=== PATIENT | female | born 1990 | race Caucasian/White ===

== ENCOUNTER 2019-05-30 15:00 | Emergency (ER) | payer MEDICARE, MEDICAID, SELFPAY ==
[2019-05-30 15:11] VITALS: BP 113/61; PULSE 64; RESP 16; TEMP 36.6; O2SAT 100
--- NOTE | 2019-05-30 15:38 | ED.GENADULT ---
HPI - General Adult General Chief complaint: Ear Stated complaint: right ear spot Time Seen by Provider: 05/30/19 15:39 Source: patient Mode of arrival: ambulatory Limitations: no limitations History of Present Illness HPI narrative: Chelle Maddox is a 28 yo female who comes to the urgent care for a small indurated area on the right lower earlobe; states is slightly tender, no drainage, has a piercing that is removed from the area Boyfriend states worried id cauliflower ear even though no trauma Related Data Allergies Allergy/AdvReac Type Severity Reaction Status Date / Time [place] Hair Removal AdvReac Mild rash Uncoded 05/30/19 15:19 Review of Systems Review of Systems: Narrative: CONSTITUTIONAL: Denies fever, chills, sweats. EYES: Denies visual changes, redness, discharge. ENT: Denies rhinorrhea, congestion, sore throat, otalgia. CARDIOVASCULAR: Denies chest pain, palpitations, edema. RESPIRATORY: Denies dyspnea, wheezing, cough GASTROINTESTINAL: Denies abdominal pain, nausea, vomiting, diarrhea. GENITOURINARY: Denies dysuria, hematuria, abnormal discharge SKIN: Denies rash or itching. Small induration of the right lower earlobe MUSCULOSKELETAL: Denies acute back pain, joint pain, or myalgia. NEUROLOGIC: Denies numbness, or focal weakness. PSYCHIATRIC: Denies anxiety or depression. [facility], [facility] Social History Social History (Updated 05/30/19 @ 15:49 by Lovely Arroyo CNP) Smoking status: Never smoker Comments At time of signature, I agree with nursing past medical, surgical, social and family history. There is no relevant family history pertinent to the presenting complaint. Exam Narrative: Exam Narrative: GENERAL: This is a well-nourished, well-developed patient, in no apparent distress. HEAD: normocephalic, atraumatic. EYES: Sclera clear/white. Vision is grossly intact. EARS: External ears normal, auditory canals clear and without drainage, TMs normal without perforation. Hearing grossly intact. Small indurated area on right lobe, nonfluctuant, mildly tender, no erythema NOSE: External nose normal with no obvious nasal discharge, nares without redness, no rhinorrhea. THROAT: Mucous membranes moist, NECK: Neck supple, non-tender CARDIOVASCULAR: Regular rate and rhythm without murmurs, gallops, or rubs. RESPIRATORY: Clear to auscultation. Breath sounds equal bilaterally. No wheezes, rales, or rhonchi. GASTROINTESTINAL: Abdomen soft, non-tender, nondistended. Bowel sounds are active. No hepato-splenomegaly, or palpable masses. No guarding. SKIN: warm, intact with no suspicious lesions or rash, good texture and turgor. NEURO: awake, alert, and oriented to person, place and time. There were no obvious focal neurologic abnormalities. Steady gait EXTREMITIES: Normal range of motion. Something. BACK: Nontender without deformity. Course Course Emergency Course: Patient refused needle opening of induration to see if infection present; states will use warm cloth to ear, as well as hydrocortisone and Neosporin and will return if area worsens Vital Signs Vital signs: Vital Signs Temperature 97.9 F 05/30/19 15:11 Pulse Rate 64 05/30/19 15:11 Respiratory Rate 16 05/30/19 15:11 Blood Pressure 113/61 05/30/19 15:11 Pulse Oximetry 100 05/30/19 15:11 Temperature 97.9 F 05/30/19 15:11 Pulse Rate 64 05/30/19 15:11 Respiratory Rate 16 05/30/19 15:11 Blood Pressure 113/61 05/30/19 15:11 Pulse Oximetry 100 05/30/19 15:11 Medical Decision Making Differential Diagnosis Differential Diagnosis: Cellulitis severe versus abscess Vital Signs Vital Signs: Vital Signs Temperature 97.9 F 05/30/19 15:11 Pulse Rate 64 05/30/19 15:11 Respiratory Rate 16 05/30/19 15:11 Blood Pressure 113/61 05/30/19 15:11 Pulse Oximetry 100 05/30/19 15:11 Temperature 97.9 F 05/30/19 15:11 Pulse Rate 64 05/30/19 15:11 Respiratory Rate 16 05/30/19 15:11 Blood Pressure 113/61 02
== END 2019-05-30 16:00 | disposition home or self-care (01) ==
PROVIDERS: Emergency Provider Nurse Practitioner
DX: L98.9 Disorder of the skin and subcutaneous tissue, unspecified (principal); J45.909 Unspecified asthma, uncomplicated
CPT/HCPCS: 99213; G0463

== ENCOUNTER 2021-02-25 10:52 | Emergency (ER) | payer OTHER, SELFPAY ==
--- NOTE | ~2021-02-25 | XR_ITS ---
EXAMINATION: XR chest 2V DATE: 02/25/2021 11:38 INDICATION: Cough and congestion TECHNIQUE: PA and lateral views of the chest are obtained. COMPARISON: None available FINDINGS: The lungs are free of acute opacities. There is no pleural effusion or pneumothorax. The ca rdiomediastinal silhouette is normal. The visualized bones and soft tissues are unremarkable. IMPRESSION: 1. No acute cardiopulmonary abnormality. Reviewed, dictated and finalized at location B.
--- NOTE | 2021-02-25 10:58 | ED.URI ---
HPI - URI/Sore Throat General Chief Complaint: Upper Respiratory Infection Stated Complaint: Cough/Chest Congestion Time Seen by Provider: 02/25/21 10:58 Source: patient and RN notes reviewed History of Present Illness HPI Narrative: Patient is a 30-year-old female who presents the urgent care with complaints of cough, runny nose and chest congestion. Patient states symptoms started 3 weeks ago. Patient states that she is 18 weeks . Denies of any fevers. States that she has been taking Zofran as needed for morning sickness. Patient has also been using Robitussin for her cough but denies of any other use of [id number] medications. Patient has not had the Covid vaccine but denies of any exposures. No other acute complaints. No acute distress noted. Patient aware of the plan of care. Some parts of this dictation were generated by voice recognition software and may contain typographical and/or grammatical inaccuracies. Related Data Allergies Allergy/AdvReac Type Severity Reaction Status Date / Time No Known Allergies Allergy Verified 02/25/21 11:29 Review of Systems Review of Systems: CONSTITUTIONAL: Denies fever, chills, or sweats. EYES: Denies visual changes, redness, or discharge. ENT: Reports of rhinorrhea with postnasal drainage without sore throat CARDIOVASCULAR: Denies chest pain, palpitations, or edema. RESPIRATORY: Reports of cough without dyspnea. Reports of chest congestion GASTROINTESTINAL: Denies abdominal pain, nausea, vomiting, or diarrhea. GENITOURINARY: Denies dysuria or hematuria. SKIN: Denies rash or itching. MUSCULOSKELETAL: Denies back pain, joint pain, or myalgia. NEUROLOGIC: Denies headache, numbness, or weakness. All other systems reviewed are negative, except as documented in HPI. PMFSH Comments At the time of my signature, I reviewed and agree with the nursing past medical, surgical, social, and family history. There is no relevant family history pertinent to the patient complaint. Exam Narrative: GENERAL: This is a well-nourished, well-developed patient, in no apparent distress. HEAD: normocephalic, atraumatic. EYES: PERRL. Sclera clear/white. Vision is grossly intact. EARS: External ears normal, auditory canals clear and without drainage, TMs normal without perforation. Hearing grossly intact. NOSE: External nose normal with no obvious nasal discharge, nares without redness, no rhinorrhea. THROAT: Mucous membranes moist, posterior pharynx clear. Moderate postnasal drainage NECK: Neck supple, non-tender without lymphadenopathy, masses or thyromegaly. CARDIOVASCULAR: Regular rate and rhythm without murmurs, gallops, or rubs. RESPIRATORY: Mild expiratory wheeze to right upper lobe, otherwise clear SKIN: warm, intact with no suspicious lesions or rash, good texture and turgor. NEURO: awake, alert, and oriented to person, place and time. There were no obvious focal neurologic abnormalities. EXTREMITIES: No clubbing, cyanosis, or edema. Course Vital Signs Vital signs: Vital Signs Temperature 98.4 F 02/25/21 11:04 Pulse Rate 90 02/25/21 11:04 Respiratory Rate 16 02/25/21 11:04 Blood Pressure 104/61 02/25/21 11:04 Pulse Oximetry 97 02/25/21 11:04 Temperature 98.4 F 02/25/21 11:04 Pulse Rate 90 02/25/21 11:04 Respiratory Rate 16 02/25/21 11:04 Blood Pressure 104/61 02/25/21 11:04 Pulse Oximetry 97 02/25/21 11:04 Reviewed MDM - URI/Sore Throat MDM Narrative Medical decision making narrative: Reviewed x-ray results with the patient. She is aware that chest x-ray was negative for pneumonia or any abnormality. Advised the patient to stop taking the Robitussin unless otherwise cleared through her [employer]. May use [id number] Zyrtec or Benadryl that is safe in . May also use Flonase nasal spray. May use Tylenol as needed. Do not take any ibuprofen. Increase your water intake and rest. Use a humidifier at night and do not sleep with a f
[2021-02-25 11:04] VITALS: BP 104/61; PULSE 90; RESP 16; TEMP 36.9; O2SAT 97
== END 2021-02-25 12:14 | disposition home or self-care (01) ==
PROVIDERS: Emergency Provider Nurse Practitioner Family
DX: J06.9 Acute upper respiratory infection, unspecified (principal); O99.512 Diseases of the respiratory system complicating pregnancy, second trimester; Z3A.18 18 weeks gestation of pregnancy
CPT/HCPCS: 71046; 99213; G0463